=== PATIENT | female | born 1990 | race Caucasian/White ===

== ENCOUNTER 2024-09-25 08:28 | Day surgery (SDC) | payer MEDICARE, MEDICAID ==
[2024-09-18 15:29] LABS: BILIRUBIN,URINE NEGATIVE (Neg); CLARITY,URINE CLEAR (Clear); COLOR,URINE YELLOW (Yellow); GLUCOSE, URINE NEGATIVE (Neg); KETONES,URINE NEGATIVE (Neg); LEUKOCYTE ESTERASE ,URINE SMALL (Neg); NITRITES, URINE NEGATIVE (Neg); OCCULT BLOOD,URINE NEGATIVE (Neg); PH,URINE 7.5 (4.8-8.0); PROTEIN,URINE NEGATIVE (Neg); UROBILINOGEN,URINE 0.2 E.U/dL (0.2-1.0)
[2024-09-18 15:34] LABS: UA COLLECTION TYPE CLN CATCH MIDSTREAM
[2024-09-18 15:35] LABS: BASOPHILS # (AUTO) 0.1 X10'3 (0-0.2); BASOPHILS % (AUTO) 0.5 % (0-1); EOSINOPHILS # (AUTO) 0.3 X10'3 (0-0.9); EOSINOPHILS % (AUTO) 2.8 % (0-6); LYMPHOCYTES # (AUTO) 2.1 X10'3 (1.1-4.8); LYMPHOCYTES % (AUTO) 19.6 % (21-51); MEAN CORPUSCULAR HEMOGLOBIN 28.6 PG (27.0-31.0); MEAN CORPUSCULAR HGB CONC 32.9 g/dL (33.0-36.5); MEAN CORPUSCULAR VOLUME 87.1 FL (78-98); MEAN PLATELET VOLUME 10.3 FL (7.4-10.4); MONOCYTES # (AUTO) 0.6 X10'3 (0-0.9); MONOCYTES % (AUTO) 5.7 % (2-12); NEUTROPHILS # (AUTO) 7.7 X10'3 (1.8-7.7); NEUTROPHILS % (AUTO) 71.4 % (42-75); PRE OP HEMATOCRIT 42.3 % (35.0-45.0); PRE OP HEMOGLOBIN 13.9 g/dL (12.0-16.0); PRE OP PLATELET COUNT 251 X10'3 (140-440); PRE OP WHITE BLOOD COUNT 10.8 10'3 (4.8-10.8); RED BLOOD COUNT 4.85 X10'6 (4.20-5.60); RED CELL DISTRIBUTION WIDTH 15.3 % (11.5-14.5)
[2024-09-18 15:36] LABS: BACTERIA,URINE FEW /HPF (Neg); MUCUS STRANDS FEW /LPF (Neg); RBC,URINE 0-2 /HPF (0-2); SQUAMOUS EPITHELIAL CELL,UR FEW /LPF (FEW); TRANSITIONAL EPI CELLS,URINE FEW /HPF
[2024-09-18 15:41] LABS: PRE OP PROTIME 10.9 SECONDS (9.0-12.0)
[2024-09-18 15:48] LABS: ALKALINE PHOSPHATASE 85 IU/L (46-116); BLOOD UREA NITROGEN 12 MG/DL (7-18); BUN/CREATININE RATIO 17.6 (10.0-20.0); CALCIUM 8.8 MG/DL (8.5-10.1); CHLORIDE 100 MMOL/L (99-107); CREATININE 0.68 MG/DL (0.40-0.90); PRE OP ALT 15 U/L (30-65); PRE OP ANION GAP 10 (8-16); PRE OP AST 13 U/L (10-37); PRE OP BILIRUB, TOTAL 0.3 MG/DL (0.0-1.0); PRE OP GLUCOSE 89 MG/DL (70-104); PRE OP POTASSIUM 3.8 MMOL/L (3.4-5.1); PRE OP SODIUM 139 MMOL/L (135-145); TOTAL CARBON DIOXIDE 28.7 MMOL/L (24-32); eGFR > 90 ML/MIN
[2024-09-25] VITALS (22 sets, daily range): BP systolic 129–167; BP diastolic 67–102; PULSE 78–109; RESP 15–17; TEMP 98.6; O2SAT 85–97
[~2024-09-25] VITALS: Ht 167.6 cm; Wt 126.8 kg
[~2024-09-25 08:28] MED LIST: FURO20TA4 PO; HYDR-3964 PO; HYDR25TA4 PO; LEVO25TA7 PO; LISI5TAB22 PO; MULT-1085 PO; PANT20TA18 PO; SEMA0.253 SQ; SPIR25TA5 PO
[2024-09-25] MEDS: famotidine 20mg tablet PO ONE (09:31)
[2024-09-25] MEDS: ringers solution, lacted 1,000 ML IV SCH (09:32)
[2024-09-25] MEDS: VANCOMYCIN/H2O 1.5g/300mL PB 300 ML IV ONE (09:33)
[2024-09-25] MEDS ORDERED: labetalol 20mg/4ml (5mg/ml) syringe IV PRN (09:45)
[2024-09-25] MEDS ORDERED: enalaprilat 1.25mg/ml 2ml vial IV PRN (09:45)
[2024-09-25] MEDS ORDERED: ringers solution, lacted 1,000 ML IV SCH (09:45)
[2024-09-25] MEDS ORDERED: morphine 4 MG/ML inj SYRINge IV PRN (09:45)
[2024-09-25] MEDS ORDERED: proCHLORperazine 10 MG/2 ml inj IV PRN (09:45)
[2024-09-25] MEDS ORDERED: ondansetron/PF 4mg/2ml inj IV PRN (09:45)
[2024-09-25] MEDS ORDERED: meperidine/PF 25mg/ml syringe IV PRN ×3 (09:45)
[2024-09-25] MEDS ORDERED: bacitracin 15gm ointment TP ONE (11:12)
[2024-09-25] MEDS ORDERED: BUPIVAcaine 2.5mg/ml inj 50ml vial (contains preservative) ONE (11:12)
[2024-09-25] MEDS ORDERED: sevoflurane 250ml liquid IH ONE (11:27)
[2024-09-25] MEDS ORDERED: fentaNYL/PF 50MCG/1 ML 2ML syringe ONE (11:42)
[2024-09-25] MEDS ORDERED: MIDAZolam 1 MG/ML 5ML VIAL ONE (11:42)
[2024-09-25] MEDS ORDERED: propofol inj 20 ML IV ONE (11:54)
[2024-09-25] MEDS ORDERED: LIDOcaine 1%/PF 5ML 10 MG/ML VIAL ONE (11:54)
[2024-09-25] MEDS ORDERED: dexamethasone sod phosphate 4mg/ml inj. ONE (12:08)
[2024-09-25] MEDS ORDERED: ondansetron/PF 4mg/2ml inj ONE (12:08)
[2024-09-25] MEDS: morphine 2 MG/ML inj. syringe IV PRN (12:48)
[2024-09-25] MEDS: acetaminophen 1,000mg/100ml IV 100 ML IV ONE (13:09)
[2024-09-25] MEDS ORDERED: meperidine/PF 100mg/ml syringe IV PRN ×3 (14:22→14:23)
[2024-09-25] MEDS: naloxone 0.4 mg/ml inj IV ONE (14:32)
[2024-09-25] MEDS: oxyCODONE/APAP 10/325mg tablet PO ONE (15:27)
== END 2024-09-25 15:45 | disposition home or self-care (01) ==
LOC: PAS 08:28
PROVIDERS: ATTEND Podiatrist Foot & Ankle Surgery
DX: T84.84XA Pain due to internal orthopedic prosthetic devices, implants and grafts, initial encounter (principal); Y83.8 Other surgical procedures as the cause of abnormal reaction of the patient, or of later complication, without mention of misadventure at the time of the procedure; M20.62 Acquired deformities of toe(s), unspecified, left foot; I10 Essential (primary) hypertension; Z88.0 Allergy status to penicillin; G43.909 Migraine, unspecified, not intractable, without status migrainosus; E03.9 Hypothyroidism, unspecified; E66.01 Morbid (severe) obesity due to excess calories; Z79.01 Long term (current) use of anticoagulants; Z79.899 Other long term (current) drug therapy; Z98.890 Other specified postprocedural states
CPT/HCPCS: 20680; 28820; 36415; 71046; 73620; 80053; 81001; 82948; 85025; 85610; 85730; 87088; 93005; A4215; A4615; A4618; A6253; A6402; A6449; A7000; J0131; J1100; J2250; J2270; J2310; J2405; J2704; J3010; J3372; J3490; J7030; J7120; Z7506; Z7508; Z7512; Z7610; 76000; 88300